=== PATIENT | female | born 1995 | race Caucasian/White ===

== ENCOUNTER → 2019-12-04 | Outpatient (CLI) | payer BC ==
[~2019-12-04] MED LIST: CATHETER FLUSH 10 ML SYR IV PRN
--- NOTE | 2019-12-04 11:59 | Diagnostic Imaging Report ---
EXAMINATION: HEPATOBILIARY WITH EJECTION FR CLINICAL HISTORY: Right upper quadrant abdominal pain. IMAGING TECHNIQUE: Hepatobiliary imaging was performed after the intravenous administration of 5.46 mCi of [id number]. The patient was then given 1 can of Ensure to drink and gallbladder ejection fraction was calculated. COMPARISON: None available. FINDINGS: There is normal clearance of blood pool activity. There is normal hepatic uptake of radiotracer. There is prompt excretion into the bile ducts and biliary tree. Small bowel activity is seen at approximately 15 minutes. Gallbladder activity is seen at approximately 25 minutes and appeared normal as time progressed. After administration of CCK, the calculated gallbladder ejection fraction is 72%. IMPRESSION: Normal hepatobiliary scan, without evidence of cystic or common bile duct obstruction. Normal gallbladder ejection fraction of 72%. Dictated by: Dictated on workstation # [id number]
== END ==
LOC: CARD 10:00
PROVIDERS: ATTEND Family Medicine
DX: R10.11 Right upper quadrant pain (principal)
CPT/HCPCS: 78227; A9537